=== PATIENT | male | born 1960 | race Caucasian/White ===

== ENCOUNTER 2020-12-28 17:56 | Emergency (ER) | payer BC ==
[~2020-12-28] VITALS: Ht 185.4 cm; Wt 88.0 kg
--- NOTE | 2020-12-28 17:56 | NUR ---
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 PT HAD TRIPLE BYPASS 2 DAYS AGO AT [facility]. PT IS AAOX3, NOTED MILD RESPIRATORY DISTRESS, HOOKED TO CERTIFIED DIABETES EDUCATOR, KEPT RESTED AND COMFORATABLE. WILL CONTINUE TO MONITOR.
--- NOTE | 2020-12-28 18:05 | NUR ---
SEEN AND EXAMINED BY .
--- NOTE | 2020-12-28 18:07 | NUR ---
AT BEDSIDE FOR ULTRASOUND.
--- NOTE | 2020-12-28 18:11 | NUR ---
SURGERY WAS DONE AT [facility] ON 12/21/[address] ROLDAN [phone] SALINAS [phone] HX OF DM, [place]S
[2020-12-28 18:12] LABS: BASOPHILS # (AUTO) 0.3 K/uL (0.0-0.2); BASOPHILS % (AUTO) 0.8 % (0.0-2.0); HEMATOCRIT 41 % (39-51); HEMOGLOBIN 12.4 g/dL (13.5-17.5); LYMPHOCYTES # (AUTO) 5.1 K/uL (0.8-4.8); LYMPHOCYTES % (AUTO) 15.7 % (20.0-44.0); MEAN CORPUSCULAR HGB CONC 31 g/dl (31.0-36.0); MEAN CORPUSCULAR VOLUME 95 fL (80-96); MONOCYTES # (AUTO) 1.7 K/uL (0.1-1.30); MONOCYTES % (AUTO) 5.1 % (2.0-12.0); NEUTROPHILS # (AUTO) 25.3 K/uL (1.8-8.9); NEUTROPHILS % (AUTO) 77.4 % (43.0-81.0); PLATELET COUNT (AUTO) 613 K/uL (150-450); RED BLOOD CELL COUNT(AUTO) 4.31 MIL/uL (4.5-6.0)
--- NOTE | 2020-12-28 18:12 | NUR ---
AUDIO INSTALLER AT BEDSIDE FOR XRAY.
[2020-12-28 18:17] LABS: WHITE BLOOD COUNT (AUTO) 32.7 K/uL (4.3-11.0)
--- NOTE | 2020-12-28 18:17 | NUR ---
CALLED DR. SALINAS [phone] OPTION 2 LEFT MSG TO CALL US BACK.
[2020-12-28] MEDS ORDERED: ALLO300T2 PO (18:18)
[2020-12-28] MEDS ORDERED: SEMA1PEN SQ (18:18)
[2020-12-28] MEDS ORDERED: AMLO2.5T2 PO (18:18)
[2020-12-28] MEDS ORDERED: MULT-447 PO (18:18)
[2020-12-28] MEDS ORDERED: ROSU40TA PO (18:18)
[2020-12-28] MEDS ORDERED: ACET325T53 PO (18:18)
[2020-12-28] MEDS ORDERED: ASPI-1169 PO (18:18)
[2020-12-28] MEDS ORDERED: VALA500T40 PO (18:18)
[2020-12-28] MEDS ORDERED: METO25TA6 PO (18:18)
[2020-12-28] MEDS ORDERED: ASCO500C17 PO (18:18)
[2020-12-28] MEDS ORDERED: FLUT16SP16 NS (18:18)
[2020-12-28] MEDS ORDERED: CANA300T PO (18:18)
--- NOTE | 2020-12-28 18:23 | NUR ---
DR. SALINAS SPEAKING WITH DR. VASQUEZ.
[2020-12-28] MEDS ORDERED: AMIODARONE 450 MG in IV D5W 250 ML IV ONE (18:30)
[2020-12-28] MEDS ORDERED: AMIODARONE 150 MG in IV D5W 100 ML IV ONE (18:30)
[2020-12-28 18:37] LABS: CALCIUM, SERUM 9.2 mg/dL (8.5-10.1); CHLORIDE 103 mmol/L (98-107); CREATININE 1.3 mg/dL (0.6-1.3); GLUCOSE 208 mg/dL (74-106); POTASSIUM 5.2 mmol/L (3.5-5.1); SODIUM SERUM 145 mmol/L (136-145); UREA NITROGEN, BLOOD 25 mg/dL (7-18)
[2020-12-28 18:38] LABS: CARBON DIOXIDE 5 mmol/L (21-32)
--- NOTE | 2020-12-28 18:42 | NUR ---
CALLED [facility] @[address] [place] [address] FAXING FACE SHEET & CLINICALS TO [phone]
--- NOTE | 2020-12-28 18:48 | NUR ---
CALLED [facility] [phone] LEFT TO CALL US BACK.
[2020-12-28] MEDS ORDERED: VANCOMYCIN 1 GM in IV D5W 250 ML IV ONE (19:00)
[2020-12-28] MEDS ORDERED: CEFEPIME 1 GM in IV D5W 50 ML IV ONE (19:00)
[2020-12-28 19:06] LABS: BAND % (MANUAL) 2 % (0.0-5.0); EOSINOPHILS % (MANUAL) 1 % (0-4); LYMPHOCYTES % (MANUAL) 29 % (16-48); MONOCYTES % (MANUAL) 7 % (0-11.0); NEUTROPHILS % (MANUAL) 61 (42-76)
--- NOTE | 2020-12-28 19:27 | NUR ---
MOVE SHEET SUBMITTED.
[2020-12-28] MEDS ORDERED: IOHEXOL-350 100 ML VIAL IV ONE (19:38)
[2020-12-28 19:55] LABS: ABG BASE EXCESS -28.6 mmol/L; ABG OXYGEN SATURATION 96.2 % (92.0-98.5); ABG PH 6.883 (7.350-7.450); ABG PO2 132.1 mmHg (75.0-100.0); AaDO2 104.9 mmHg; COHb 0.3 % (0.5-1.5); MetHb 0.4 % (0.0-1.5); O2Hb 95.5 % (94.0-97.0); SITE, ABG Right Brachial; VENT MODE, BG 4LNC
--- NOTE | 2020-12-28 19:56 | NUR ---
RT abg performed. results given to er md. placed pt on nrb per md. waiting for further orders.
[2020-12-28] MEDS ORDERED: IV NS 0.9% 1,000 ML BAG IV ONE ×2 (20:00→21:00)
[2020-12-28] MEDS ORDERED: NOREPINEPHRINE 8 MG in IV NS 0.9% 250 ML IV ONE (20:00)
[2020-12-28] MEDS ORDERED: Sodium Bicarbonate 150 MEQ in IV NS 0.9% 1,000 ML IV PRN (20:00)
--- NOTE | 2020-12-28 20:03 | NUR ---
PT OUT TO CT WITH RN AND RT VIA ACLS PROTOCOL
--- NOTE | 2020-12-28 20:13 | NUR ---
PT BACK FROM CT.
--- NOTE | 2020-12-28 20:27 | NUR ---
CALLED PHARMACY FOR LEVO.
[2020-12-28] MEDS ORDERED: SODIUM BICARBONATE SYR 100 MEQ in IV 1/2NS 1000 ML 1,000 ML IV SCH (20:30)
[2020-12-28] MEDS ORDERED: INSULIN REGULAR, HUMAN 100 UNITS in IV NS 0.9% 100 ML IV PRN (20:30)
[2020-12-28] MEDS ORDERED: ONDANSETRON HCL/PF 4 MG/2 ML VIAL IVP PRN (21:00)
[2020-12-28] MEDS ORDERED: MORPHINE SULFATE INJ 2 MG/ML DISP.SYRIN IV PRN (21:00)
[2020-12-28] MEDS ORDERED: LABETALOL 20 MG/4 ML VIAL IV PRN (21:00)
[2020-12-28] MEDS ORDERED: ACETAMINOPHEN 325 MG TABLET PO PRN (21:00)
--- NOTE | 2020-12-28 21:09 | NUR ---
ICU 257
[2020-12-28] MEDS ORDERED: SODIUM BICARBONATE SYR 50 MEQ/50 ML DISP.SYRIN ONE ×2 (21:49→21:58)
[2020-12-28 22:06] LABS: ALBUMIN 3.6 g/dL (3.4-5.0)
[2020-12-28 22:08] LABS: BILIRUBIN,DIRECT 0.1 mg/dL (0.0-0.2); BILIRUBIN,TOTAL 0.5 mg/dL (0.2-1.0)
[2020-12-28 22:16] LABS: ABG BASE EXCESS -29.9 mmol/L; ABG OXYGEN SATURATION 92.4 % (92.0-98.5); ABG PCO2 20.7 mmHg (35.0-45.0); ABG PH 6.811 (7.350-7.450); ABG PO2 95.8 mmHg (75.0-100.0); COHb 0.3 % (0.5-1.5); MetHb 0.5 % (0.0-1.5); O2Hb 91.7 % (94.0-97.0); SITE, ABG Other; VENT MODE, BG 4L SM
[2020-12-28 22:40] LABS: BILIRUBIN,URINE MODERATE (NEGATIVE); COLOR,URINE YELLOW (YELLOW); LEUKOCYTE ESTERASE ,URINE Negative (NEGATIVE); NITRITE, URINE Negative (NEGATIVE); PROTEIN,URINE 100 mg/dl (NEGATIVE); UGLUCOSE 500 MG/DL mg/dL (NEGATIVE); UROBILINOGEN,URINE 0.2 EU/dL (0.2)
[2020-12-28 22:41] LABS: BACTERIA,URINE Rare /HPF (None Seen); RBC,URINE NONE SEEN /HPF (0-2); SQUAMOUS EPITHELIAL CELL,UR Few /HPF (None Seen); WBC,URINE NONE SEEN /HPF (0-3)
--- NOTE | 2020-12-28 23:08 | NUR ---
CALL FROM [facility]. PT ACCEPTED TO ICU [id number], BY DR BEAVER. CALL [phone] 30 MIN PRIOR TO EVENT DECORATOR FOR REPORT.
--- NOTE | 2020-12-28 23:11 | NUR ---
[facility] CALLED FOR TRANSPORT. NO CCT AVAILABLE UNTIL TOMORROW.
--- NOTE | 2020-12-28 23:13 | NUR ---
[facility] CALLED FOR CCT TRANSPORT. NO RN AVAILABLE.
--- NOTE | 2020-12-28 23:14 | NUR ---
[facility] CALLED FOR CCT TRANSPORT. NONE AVAILABLE.
--- NOTE | 2020-12-28 23:19 | NUR ---
[facility] CALLED FOR CCT TRANSPORT. ETA [id number]
[2020-12-28] MEDS ORDERED: INSULIN REGULAR, HUMAN 100 UNIT/ML 10 ML VIAL ONE (23:28)
[2020-12-28] MEDS ORDERED: SODIUM BICARBONATE SYR 50 MEQ/50 ML DISP.SYRIN IV ONE (23:30)
[2020-12-28 23:56] LABS: ALBUMIN 2.5 g/dL (3.4-5.0); BILIRUBIN,TOTAL 0.5 mg/dL (0.2-1.0); CALCIUM, SERUM 6.8 mg/dL (8.5-10.1); CREATININE 1.4 mg/dL (0.6-1.3); POTASSIUM 4.9 mmol/L (3.5-5.1); TOTAL PROTEIN, SERUM 5.6 g/dL (6.4-8.2)
--- NOTE | 2020-12-29 00:50 | NUR ---
r report given to landon golden) at [facility]
[2020-12-29] MEDS ORDERED: SODIUM BICARBONATE SYR 100 MEQ in IV 1/2NS 1000 ML 1,000 ML IV SCH (02:45)
[2020-12-29 02:54] LABS: ABG BASE EXCESS 19.3 mmol/L; ABG OXYGEN SATURATION 78.3 % (92.0-98.5); ABG PCO2 77.7 mmHg (35.0-45.0); ABG PH 7.393 (7.350-7.450); ABG PO2 42.2 mmHg (75.0-100.0); COHb 0.3 % (0.5-1.5); MetHb 0.8 % (0.0-1.5); O2Hb 77.4 % (94.0-97.0); VENT MODE, BG SM 4L
[2020-12-29 03:26] LABS: BILIRUBIN,TOTAL 0.7 mg/dL (0.2-1.0); CREATININE 1.8 mg/dL (0.6-1.3); MAGNESIUM 2.6 mg/dL (1.8-2.4); POTASSIUM 5.6 mmol/L (3.5-5.1)
--- NOTE | 2020-12-29 03:29 | NUR ---
LACTIC 2.2
[2020-12-29 04:09] VITALS: BP 117/61
--- NOTE | 2020-12-29 04:54 | NUR ---
pt transported to [facility] per acls protocol.
[2020-12-29] MEDS ORDERED: VALACYCLOVIR HCL 500 MG TABLET PO SCH (09:00)
[2020-12-29] MEDS ORDERED: ATORVASTATIN 40 MG TABLET PO SCH (09:00)
[2020-12-29] MEDS ORDERED: ASPIRIN 81 MG TAB.CHEW PO SCH (09:00)
[2020-12-29] MEDS ORDERED: AMLODIPINE BESYLATE 2.5 MG TABLET PO SCH (09:00)
[2020-12-29] MEDS ORDERED: ALLOPURINOL 100 MG TABLET PO SCH (09:00)
[2020-12-29] MEDS ORDERED: VANCOMYCIN HCL 1 GM in IV D5W 260 ML IV SCH (09:00)
[2020-12-29] MEDS ORDERED: METOPROLOL TARTRATE 25 MG TABLET PO SCH (09:00)
[2020-12-29] MEDS ORDERED: CEFEPIME 1 GM in IV D5W 50 ML IV SCH (19:00)
== END 2020-12-29 05:00 | disposition short-term general hospital (02) ==
LOC: ER 17:58 → UNDOADMIN 21:40 → ICU 21:40 → UNDODISIN 12-29 02:30 → ER 12-29 05:00
DX: A41.9 Sepsis, unspecified organism (principal); J18.9 Pneumonia, unspecified organism; R65.21 Severe sepsis with septic shock; J96.01 Acute respiratory failure with hypoxia; Z95.1 Presence of aortocoronary bypass graft; K50.90 Crohn's disease, unspecified, without complications; I25.10 Atherosclerotic heart disease of native coronary artery without angina pectoris; E87.2 Acidosis; E87.5 Hyperkalemia; Z79.899 Other long term (current) drug therapy; Z79.82 Long term (current) use of aspirin; Z20.822 Contact with and (suspected) exposure to COVID-19; I47.1 Supraventricular tachycardia; E87.4 Mixed disorder of acid-base balance; E11.9 Type 2 diabetes mellitus without complications
CPT/HCPCS: 36415 ×2; 36600 ×3; 71045; 71275; 74176; 80048; 80053 ×2; 81001; 82010; 82040; 82247; 82248; 82803 ×2; 82962 ×5; 83605 ×3; 83735; 83880; 84100; 84145; 84484; 85007; 85025; 85378; 85730; 86850; 87040 ×2; 87081; 87086; 87426; 93005 ×3; 93307; 96365; 96367; 96368; 96374; 99291; C9803; J0282 ×2; J0692; J1815; J3370; J3490 ×5; J7030 ×2; J7050; J7060 ×2; Q9967; G0378